=== PATIENT | female | born 1960 | race Asian ===

== ENCOUNTER 2020-07-15 10:18 | Emergency (ER) | payer BC ==
[~2020-07-15] VITALS: Ht 157.5 cm; Wt 63.5 kg
[2020-07-15 10:25] VITALS: BP_SYST 160
[2020-07-15 11:29] VITALS: BP_SYST 145
== END 2020-07-15 11:29 | disposition home or self-care (01) ==
LOC: SED 10:18
DX: S61.217A Laceration without foreign body of left little finger without damage to nail, initial encounter (principal); W26.0XXA Contact with knife, initial encounter; Y93.89 Activity, other specified; Y92.89 Other specified places as the place of occurrence of the external cause; Y99.8 Other external cause status
CPT/HCPCS: 99282